=== PATIENT | female | born 1995 | race Caucasian/White ===

== ENCOUNTER 2021-05-01 12:13 | Emergency (ER) | payer SELFPAY ==
[~2021-05-01 12:13] MED LIST: Iopamidol 370 76% 125 ML VIAL FS ONE; Sodium Chloride 0.9% 100 ML BAG ONE
[2021-05-01 13:16] LABS: #Basophils 0.1 thou/uL (0.0-0.2); #Eosinphils 0.1 thou/uL (0.0-0.7); #Lymphocytes 2.1 thou/uL (1.20-3.40); #Monocytes 0.6 thou/uL (0.11-0.59); #Neutrophils 5.9 thou/uL (1.40-6.50); %Basophils 0.8 % (0.0-1.0); %Eosinophils 1.4 % (0.0-10.0); %Lymphocytes 24.3 % (21.0-51.0); %Monocytes 6.3 % (0.0-10.0); %Neutrophils 67.2 % (42.0-75.0); Mean Corpuscular HGB CONC 31.6 g/dL (32.0-36.0); Mean Corpuscular Volume 85.7 fL (78.0-98.0); Mean Platelet Volume 6.6 fL (7.4-10.4); Platelet Count 364 thou/uL (130-400); RBC Distribution Width 11.9 % (11.5-14.5); Red Blood Cell (RBC) Count 5.17 mill/uL (4.20-5.40); White Blood Cell (WBC) Count 8.7 thou/uL (4.8-10.8)
[2021-05-01 13:22] LABS: Bilirubin Negative (Negative); Blood, Urine Negative (Negative); Clarity Clear (Clear); Glucose, Urine (Dipstick) Negative (Negative); Ketone, Urine Negative (Negative); Leukocyte Negative (Negative); Nitrite Negative (Negative); Protein, Urine (Dipstick) Negative (Neg-Trace); Urobilinogen 0.2 mg/dL (Less than 2)
[2021-05-01 13:23] LABS: Specific Gravity, Urine 1.005 (1.002-1.036)
[2021-05-01] MEDS ORDERED: Lactated Ringer's 1,000 ML ONE (13:26)
[2021-05-01] MEDS ORDERED: Prochlorperazine 10 MG/2 ML VIAL ONE (13:26)
[2021-05-01] MEDS ORDERED: Meclizine HCl 25 MG TAB ONE (13:26)
[2021-05-01 13:28] LABS: BHCG - Serum Negative (NEGATIVE); Pregs Control Background? CLEAR/WHITE (CLR/WHITE); Pregs Control Bar Appear? YES (CONTROL BAR)
[2021-05-01 13:36] LABS: ALT (SGPT) 63 U/L (8-55); AST (SGOT) 34 U/L (5-34); Albumin 4.2 g/dL (3.5-5.0); Alkaline Phosphatase 103 U/L (40-110); Anion Gap 14 mmol/L (10-20); BUN (Urea Nitrogen) 5 mg/dL (7.0-18.7); Bilirubin, Total 0.2 mg/dL (0.2-1.2); Calc. Creatinine Clearance 0 mL/min (70-130); Calcium 10.1 mg/dL (7.8-10.44); Carbon Dioxide 26 mmol/L (22-29); Chloride 105 mmol/L (98-107); Globulin 3.5 g/dL (2.4-3.5); Glucose 96 mg/dL (70-105); Magnesium 1.9 mg/dL (1.6-2.6); Protein, Total 7.7 g/dL (6.0-8.3); Sodium 141 mmol/L (136-145)
[2021-05-01 13:54] LABS: Thyroid Stimulating Hormone 2.5089 uIU/mL (0.35-4.94)
[2021-05-01] MEDS ORDERED: Ketorolac Tromethamine 30 MG/ML VIAL ONE (14:55)
== END 2021-05-01 16:20 | disposition home or self-care (01) ==
LOC: MADERS 12:13
DX: R07.81 Pleurodynia (principal); G43.909 Migraine, unspecified, not intractable, without status migrainosus; H53.8 Other visual disturbances; R42 Dizziness and giddiness
CPT/HCPCS: 36415; 70450; 71045; 71275; 80053; 81003; 83735; 84443; 84484; 84703; 85025; 93005; 94760; 96374; 96375; J0780; J1885; J7120; Q9967